=== PATIENT | female | born 1985 | race Caucasian/White ===

== ENCOUNTER 2017-04-13 17:04 | Inpatient (IN) | payer BC, OTHER ==
[2017-04-13] MEDS ORDERED: Witch Hazel PAD* JAR TOPICAL PRN (20:12)
[2017-04-13] MEDS ORDERED: Dibucaine 1% 28.35 GM TUBE PR PRN (20:12)
[2017-04-13] MEDS ORDERED: Acetaminophen TAB* 325 MG PO PRN (20:12)
[2017-04-13] MEDS ORDERED: Ibuprofen TAB* 600 MG ONE (22:06)
[2017-04-13] MEDS: Ibuprofen TAB* 600 MG PO PRN (22:08)
[2017-04-13] MEDS ORDERED: OXYTOCIN* 10 UNITS/ML 1 ML VIAL ONE (23:13)
[2017-04-13] MEDS ORDERED: OXYTOCIN* 10 UNITS/ML 1 ML VIAL IM ONE (23:20)
[2017-04-14 07:04] LABS: Hematocrit 34 % (35-47); Mean Corpuscular HGB Conc 33 g/dl (31-36); Mean Corpuscular Hemoglobin 31 pg (27-31); Mean Corpuscular Volume 96 fL (80-97); Mean Platelet Volume 9 um3 (7.4-10.4); Red Blood Count 3.51 10^6/ul (4.0-5.4); Red Cell Distribution Width 14 % (10.5-15); White Blood Count 12.4 10^3/ul (3.5-10.8)
[2017-04-14] MEDS ORDERED: Ferrous Gluconate TAB* 324 MG TAB PO SCH (09:00)
[2017-04-14] MEDS: Ibuprofen TAB* 600 MG PO PRN (09:09)
[2017-04-14] MEDS: Docusate CAP* 100 MG PO SCH ×4 (09:09→20:29)
[2017-04-14] MEDS ORDERED: RHO D Immune Globulin (HUMAN)* 300 MCG = 1,500 I.U. INJ IM ONE (17:00)
[2017-04-15 08:11] VITALS: BP 117/80
[2017-04-15] MEDS: Docusate CAP* 100 MG PO SCH (08:56)
== END 2017-04-15 10:16 | disposition home or self-care (01) | DRG 560 ==
LOC: MCHOBOUT 17:04 → MCHOB 17:12
PROVIDERS: ADMIT Midwife; ATTEND Midwife
PROC: 10907ZC Drainage of Amniotic Fluid, Therapeutic from Products of Conception, Via Natural or Artificial Opening (ICD-10-PCS; principal; 2017-04-13)
PROC: 10E0XZZ Delivery of Products of Conception, External Approach (ICD-10-PCS; 2017-04-13)
PROC: 4A1HXCZ Monitoring of Products of Conception, Cardiac Rate, External Approach (ICD-10-PCS; 2017-04-13)
DX: O48.0 Post-term pregnancy (principal); O62.3 Precipitate labor; Z3A.40 40 weeks gestation of pregnancy; Z37.0 Single live birth
CPT/HCPCS: 36415; 85025; 85461; 86900; 86901; A9270-GY; J2590; J2790